=== PATIENT | female | born 1945 | race Caucasian/White ===

== ENCOUNTER 2016-02-26 15:43 | Emergency (ER) | payer OTHER, MEDICARE ==
[2016-02-26 15:54] VITALS: PULSE 86; BMI 35.7
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
[2016-02-26 17:13] VITALS: BP 135/64
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
== END 2016-02-26 17:36 | disposition home or self-care (01) ==
LOC: ED 15:43 → EDMC 17:36
DX: R07.89 Other chest pain (principal); M25.561 Pain in right knee; M79.671 Pain in right foot
CPT/HCPCS: 99283

== ENCOUNTER 2016-03-23 10:54 | Emergency (ER) | payer MEDICARE ==
[2016-03-23 11:03] VITALS: TEMP 98; BMI 34.3
[2016-03-23] MEDS ORDERED: SODIUM CHLORIDE 0.9% 10 ML FLUSH FLUSH PRN (11:13)
[2016-03-23] MEDS ORDERED: HydrOXYzine PAMOATE 25 MG/CAP CAP PO ONE (11:16)
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
[2016-03-23 11:35] LABS: AUTOMATED EOSINOPHIL 2.1 % (0-5); AUTOMATED LYMPH 29.2 % (17-44); AUTOMATED MONOCYTE 9.1 % (3-10); AUTOMATED NEUTROPHIL 58.6 % (45-76); MPV 7.4 fL (7.4-10.4)
[2016-03-23 11:46] LABS: LEUKOCYTES/URINE TRACE (NEGATIVE); NITRITE/URINE NEG (NEGATIVE); RBC/URINE 0-2 (0-5); URINE OCCULT BLOOD NEG (NEG/TRACE)
[2016-03-23 12:05] LABS: BLOOD UREA NITROGEN 10 MG/DL (7-17); CALCULATED OSMOLALITY 273 MOs/Kg (270-290); CHLORIDE 104 mEq/L (98-107); GLUCOSE 109 mg/dL (70-99); SODIUM LEVEL 142 mEq/L (137-146); TOTAL PROTEIN 7.3 G/DL (6.3-8.2)
--- NOTE | 2016-03-23 12:21 | DIRPT ---
CLINICAL DATA: Patient with diffuse body itching. Cough. EXAM: CHEST 2 VIEW COMPARISON: Chest radiograph 02/26/2016; 02/19/2016 FINDINGS: Stable cardiac mediastinal contours. Elevation right hemidiaphragm. No consolidative pulmonary opacities. No pleural effusion or pneumothorax. Thoracic spine degenerative changes. IMPRESSION: No acute cardiopulmonary process. Electronically Signed By: Darron Veloz M.D. On: 03/23/2016 12:19
--- NOTE | 2016-03-23 13:22 | DIRPT ---
CLINICAL DATA: Contusion with urinary incontinence. EXAM: CT HEAD WITHOUT CONTRAST TECHNIQUE: Contiguous axial images were obtained from the base of the skull through the vertex without intravenous contrast. COMPARISON: Head CT 01/19/2015 and 06/20/2012. FINDINGS: There is no evidence of acute intracranial hemorrhage, mass lesion, brain edema or extra-axial fluid collection. The ventricles and subarachnoid spaces are mildly prominent but stable. There is no CT evidence of acute cortical infarction. The visualized paranasal sinuses, mastoid air cells and middle ears are clear. The calvarium is intact. IMPRESSION: Stable mild generalized cerebral atrophy. No acute intracranial findings. Electronically Signed By: Damian Abraham M.D. On: 03/23/2016 13:19
[2016-03-23] MEDS ORDERED: NS 1,000 ML IV ONE (13:38)
[2016-03-23 15:07] VITALS: BP 114/56; PULSE 85
== END 2016-03-23 15:05 | disposition home or self-care (01) ==
LOC: ED 10:54
DX: N30.00 Acute cystitis without hematuria (principal); J40 Bronchitis, not specified as acute or chronic; E78.00 Pure hypercholesterolemia, unspecified; K21.9 Gastro-esophageal reflux disease without esophagitis; I48.0 Paroxysmal atrial fibrillation; I25.10 Atherosclerotic heart disease of native coronary artery without angina pectoris; F32.9 Major depressive disorder, single episode, unspecified; F41.9 Anxiety disorder, unspecified; Z79.899 Other long term (current) drug therapy
CPT/HCPCS: 36415; 70450; 71020; 80053; 81001; 83605; 85025; 87077; 87086; 87186; 93005; 96360; 99284; A9270; J3490